=== PATIENT | male | born 1935 | race African-American/Black ===

== ENCOUNTER 2022-07-27 10:55 | Emergency (ER) | payer OTHER ==
[~2022-07-27] VITALS: Ht 182.9 cm; Wt 86.0 kg
[2022-07-27] MEDS ORDERED: NITROGLYCERIN OINT 1GM/INCH UDPKT TD ONE ×2 (14:00→18:30)
[2022-07-27] MEDS ORDERED: CLONIDINE 0.2MG TABLET PO ONE ×2 (14:00→21:00)
[2022-07-27] MEDS ORDERED: SODIUM CHLORIDE 0.9% 1000ML BAG (SEPSIS BOLUS) IV ONE (14:30)
[2022-07-27 15:45] LABS: BASOPHILS % 3.4 % (0.0-2.0); EOSINOPHILS % 1.5 % (0.0-5.0); HEMATOCRIT. 35.6 % (42.0-52.0); HEMOGLOBIN. 11.3 g/dL (14.0-18.0); LYMPHOCYTES % 15.6 % (20.0-50.0); MEAN CORPUSCULAR HEMOGLOBIN 23.8 pg (28.0-32.0); MEAN CORPUSCULAR VOLUME 75.1 fL (80.0-94.0); MEAN PLATELET VOLUME 9.1 fl (7.4-10.4); MONOCYTES % 5.7 % (2.0-8.0); NEUTROPHILS % 73.8 % (40.0-76.0); PLATELET 223 x1000/uL (130-400); RED BLOOD CELL COUNT 4.74 mill/uL (4.7-6.1); RED CELL DISTRIBUTION WIDTH 18.7 % (11.6-14.6)
[2022-07-27 15:49] LABS: CHLORIDE 112 mEq/L (98-107)
[2022-07-27] MEDS ORDERED: NITROGLYCERIN 50MG PREMIX 250 ML IV ONE (18:30)
[2022-07-27 19:10] LABS: CLARITY URINE CLEAR (CLEAR); COLOR URINE YELLOW (YELLOW); KETONES URINE NEGATIVE (NEGATIVE); LEUKOCYTE ESTERASE URINE NEGATIVE (NEGATIVE); NITRITE URINE NEGATIVE (NEGATIVE); OCCULT BLOOD URINE NEGATIVE (NEGATIVE); PROTEIN URINE 1+ (NEGATIVE); UROBILINOGEN URINE 0.2 E.U./dL (0.2-1.0)
[2022-07-27] MEDS ORDERED: NITROGLYCERIN 50MG PREMIX 250 ML IV PRN (20:15)
[2022-07-27] MEDS ORDERED: CLONIDINE 0.1MG TABLET PO ONE (23:00)
[2022-07-27] MEDS ORDERED: ASPIRIN 81MG TABLET PO ONE (23:30)
[2022-07-28 01:30] VITALS: BP 129/75
[2022-07-28] MEDS ORDERED: CLONIDINE 0.1MG TABLET PO NR (02:15)
== END 2022-07-28 02:10 | disposition short-term general hospital (02) ==
LOC: ER 10:59 → EDBD 10:59 → EDBEDREQ 15:01 → EDBEDREQTM 15:01 → EDBEDREQSVC 15:01 → ER 07-28 02:10 → CANBEDREQ 07-29 09:28
DX: I16.0 Hypertensive urgency (principal); R41.82 Altered mental status, unspecified; I10 Essential (primary) hypertension; F03.90 Unspecified dementia, unspecified severity, without behavioral disturbance, psychotic disturbance, mood disturbance, and anxiety; Z20.822 Contact with and (suspected) exposure to COVID-19; Z85.830 Personal history of malignant neoplasm of bone; Z95.0 Presence of cardiac pacemaker
CPT/HCPCS: 36415; 70450; 71045; 80053; 81003; 82962; 83605; 83880; 84145; 84484; 85025; 87040; 87086; 87426; 93005; 96360; 99285; C9803; J7030; J3490

== ENCOUNTER 2022-11-27 12:03 | Emergency (ER) | payer OTHER ==
[~2022-11-27] VITALS: Ht 182.9 cm; Wt 109.0 kg
[2022-11-27 13:55] LABS: BASOPHILS % 1.7 % (0.0-2.0); EOSINOPHILS % 6.2 % (0.0-5.0); HEMATOCRIT. 35.6 % (42.0-52.0); HEMOGLOBIN. 11.4 g/dL (14.0-18.0); LYMPHOCYTES % 14.7 % (20.0-50.0); MEAN CORPUSCULAR HEMOGLOBIN 24.9 pg (28.0-32.0); MEAN CORPUSCULAR VOLUME 77.9 fL (80.0-94.0); MEAN PLATELET VOLUME 8.4 fl (7.4-10.4); MONOCYTES % 7.3 % (2.0-8.0); NEUTROPHILS % 70.1 % (40.0-76.0); PLATELET 250 x1000/uL (130-400); RED BLOOD CELL COUNT 4.57 mill/uL (4.7-6.1); RED CELL DISTRIBUTION WIDTH 17.8 % (11.6-14.6)
[2022-11-27 13:56] LABS: CHLORIDE 111 mEq/L (98-107)
[2022-11-27 14:12] LABS: PROTHROMBIN TIME 10.6 sec (9.6-11.0)
[2022-11-27] MEDS ORDERED: LABETALOL 5MG/ML SYR 20 MG/4 ML SYRINGE IV ONE (19:00)
[2022-11-27 20:20] VITALS: BP 145/89
== END 2022-11-27 20:04 | disposition short-term general hospital (02) ==
LOC: ER 12:03 → EDBEDREQTM 15:27 → EDBEDREQ 15:27 → EDBEDREQSVC 15:27 → ER 20:04 → CANBEDREQ 11-29 09:37
DX: I21.4 Non-ST elevation (NSTEMI) myocardial infarction (principal); R53.1 Weakness; I10 Essential (primary) hypertension; F03.90 Unspecified dementia, unspecified severity, without behavioral disturbance, psychotic disturbance, mood disturbance, and anxiety; Z95.0 Presence of cardiac pacemaker; Z20.822 Contact with and (suspected) exposure to COVID-19; Z85.830 Personal history of malignant neoplasm of bone
CPT/HCPCS: 36415; 71045; 80053; 83605; 84145; 84484; 85025; 85610; 87040; 87426; 93005; 96374; 99285; C9803; J3490

== ENCOUNTER 2023-01-05 10:51 | Emergency (ER) | payer OTHER ==
[~2023-01-05] VITALS: Ht 172.7 cm; Wt 74.0 kg
[2023-01-05] MEDS ORDERED: SODIUM CHLORIDE 0.9% 1,000 ML IV ONE (11:15)
[2023-01-05 12:29] LABS: BASOPHILS % 1.6 % (0.0-2.0); EOSINOPHILS % 7.3 % (0.0-5.0); HEMATOCRIT. 33.1 % (42.0-52.0); HEMOGLOBIN. 10.6 g/dL (14.0-18.0); LYMPHOCYTES % 17.4 % (20.0-50.0); MEAN CORPUSCULAR HEMOGLOBIN 25.5 pg (28.0-32.0); MEAN CORPUSCULAR VOLUME 79.8 fL (80.0-94.0); MEAN PLATELET VOLUME 8.7 fl (7.4-10.4); MONOCYTES % 9.7 % (2.0-8.0); PLATELET 232 x1000/uL (130-400); RED BLOOD CELL COUNT 4.15 mill/uL (4.7-6.1); RED CELL DISTRIBUTION WIDTH 17.1 % (11.6-14.6)
[2023-01-05 12:30] LABS: CHLORIDE 112 mEq/L (98-107)
[2023-01-05] MEDS ORDERED: SODIUM CHLORIDE 0.9% 1000ML BAG (SEPSIS BOLUS) IV ONE (13:30)
[2023-01-05] MEDS ORDERED: PIPERACILLIN/TAZ 3.375G PREMIX 50 ML IV ONE (13:30)
[2023-01-05] MEDS ORDERED: VANCOMYCIN 1G PREMIX 200 ML IV ONE (13:30)
[2023-01-05 15:15] LABS: CLARITY URINE CLEAR (CLEAR); COLOR URINE YELLOW (YELLOW); KETONES URINE NEGATIVE (NEGATIVE); LEUKOCYTE ESTERASE URINE NEGATIVE (NEGATIVE); NITRITE URINE NEGATIVE (NEGATIVE); OCCULT BLOOD URINE NEGATIVE (NEGATIVE); PROTEIN URINE TRACE (NEGATIVE); SPECIFIC GRAVITY URINE 1.012 (1.005-1.030); UROBILINOGEN URINE 0.2 E.U./dL (0.2-1.0)
[2023-01-05 18:30] VITALS: BP 190/91
== END 2023-01-05 19:53 | disposition home or self-care (01) ==
LOC: ER 10:51 → CANBEDREQ 14:17 → ER 19:53
DX: R55 Syncope and collapse (principal); E86.0 Dehydration; E87.20 Acidosis, unspecified; N28.9 Disorder of kidney and ureter, unspecified; F03.90 Unspecified dementia, unspecified severity, without behavioral disturbance, psychotic disturbance, mood disturbance, and anxiety; I10 Essential (primary) hypertension; Z20.822 Contact with and (suspected) exposure to COVID-19
CPT/HCPCS: 36415; 70450; 71045; 80053; 81003; 82962; 83605; 84484; 85025; 87040; 87426; 93005; 96361; 96365; 96366; 96368; 99285; C1893; C9803; J2543; J3370; J7030

== ENCOUNTER 2023-01-18 11:35 | Emergency (ER) | payer OTHER ==
[~2023-01-18] VITALS: Ht 182.9 cm; Wt 73.0 kg
[2023-01-18 13:46] LABS: BASOPHILS % 1.6 % (0.0-2.0); EOSINOPHILS % 4.2 % (0.0-5.0); HEMOGLOBIN. 9.7 g/dL (14.0-18.0); LYMPHOCYTES % 19.2 % (20.0-50.0); MEAN CORPUSCULAR HEMOGLOBIN 25.8 pg (28.0-32.0); MEAN CORPUSCULAR VOLUME 77.3 fL (80.0-94.0); MEAN PLATELET VOLUME 8.2 fl (7.4-10.4); PLATELET 209 x1000/uL (130-400); RED BLOOD CELL COUNT 3.76 mill/uL (4.7-6.1); RED CELL DISTRIBUTION WIDTH 16.4 % (11.6-14.6)
[2023-01-18 13:52] LABS: CHLORIDE 113 mEq/L (98-107)
[2023-01-18 14:10] LABS: CLARITY URINE CLEAR (CLEAR); COLOR URINE YELLOW (YELLOW); KETONES URINE NEGATIVE (NEGATIVE); LEUKOCYTE ESTERASE URINE NEGATIVE (NEGATIVE); NITRITE URINE NEGATIVE (NEGATIVE); OCCULT BLOOD URINE NEGATIVE (NEGATIVE); PROTEIN URINE NEGATIVE (NEGATIVE); SPECIFIC GRAVITY URINE 1.012 (1.005-1.030)
[2023-01-18 20:08] VITALS: BP 162/82
== END 2023-01-18 20:35 | disposition short-term general hospital (02) ==
LOC: ER 11:43
DX: R55 Syncope and collapse (principal); R41.82 Altered mental status, unspecified; I10 Essential (primary) hypertension; F03.90 Unspecified dementia, unspecified severity, without behavioral disturbance, psychotic disturbance, mood disturbance, and anxiety; Z95.0 Presence of cardiac pacemaker
CPT/HCPCS: 36415; 71045; 80053; 80307; 80329; 81003; 82962; 83880; 84484; 85025; 93005; 99285